=== PATIENT | female | born 1995 | race Caucasian/White ===

== ENCOUNTER 2016-11-25 05:33 | Outpatient (CLI) | payer MEDICAID ==
[~2016-11-25] VITALS: Ht 180.3 cm; Wt 141.1 kg
[~2016-11-25 05:33] MED LIST: DCS100C PO; FLUO40CA PO; HYDR-3720 PO; Ibuprofen PO
== END 2016-11-25 12:05 ==
LOC: PREOP 05:33
PROVIDERS: ATTEND Surgery
DX: Z01.818 Encounter for other preprocedural examination (principal); R22.2 Localized swelling, mass and lump, trunk

== ENCOUNTER 2016-11-30 07:02 | Day surgery (SDC) | payer MEDICAID ==
[~2016-11-30] VITALS: Ht 180.3 cm; Wt 141.1 kg
[2016-11-30] MEDS ORDERED: ceFAZolin 2 GM/50 ML NS 50 ML IV ONE (07:07)
[2016-11-30] MEDS ORDERED: ceFAZolin 2 GM/NS 50 ML IV ONE (07:15)
[2016-11-30] MEDS ORDERED: LIDOCAINE/EPI 1%-1:100,000 (XYLOCAINE) 20ML ONE (07:19)
[2016-11-30 07:20] VITALS: BP 107/62
[2016-11-30] MEDS ORDERED: LACTATED RINGERS 1,000 ML IV PRN (07:30)
--- NOTE | 2016-11-30 08:31 | Progress Note-Pre Operative ---
Pre-Operative Progress Note H&P Reviewed The H&P was reviewed, patient examined and no changes noted. Date H&P Reviewed: Nov 30, 2016 Time H&P Reviewed: 08:31 Pre-Operative Diagnosis: suprapubic mass, probable endometriosis ADRIA TIRADO DO Nov 30, 2016 08:31
[2016-11-30] MEDS ORDERED: MIDAZOLAM 2 MG/2 ML (VERSED) VIAL ONE (09:11)
[2016-11-30] MEDS ORDERED: LACTATED RINGERS 1,000 ML IV ONE (09:11)
[2016-11-30] MEDS ORDERED: ONDANSETRON 4 MG/2 ML (SDV) Z0FRAN ONE (09:11)
[2016-11-30] MEDS ORDERED: proPOfol 200 MG/20 ML (DIPRIVAN) VIAL IV ONE (09:11)
[2016-11-30] MEDS ORDERED: LIDOCAINE PF 2% 10 ML (XYLOCAINE) AMP ONE (09:11)
[2016-11-30] MEDS ORDERED: fentaNYL INJECTION 100 MCG/2 ML AMP ONE (09:12)
[2016-11-30] MEDS ORDERED: SEVOFLURANE (ULTANE) 15 ML INHAL SOLN ONE ×2 (09:16→09:45)
[2016-11-30] MEDS ORDERED: HYDR-3820 PO (09:45)
--- NOTE | 2016-11-30 09:47 | Discharge Inst-Surgical ---
Discharge Inst-Surgical Depart Medication/Instructions New, Converted or Re-Newed RX: RX Given to Pt/Family Patient Instructions Follow up Appt: Make appointment for 1 week. [phone] Instructions: No strenuous activity. May shower in 24 hours, no tub bath or soaking. Use incentive spirometer at home as directed. No Smoking Skin/Wound Care: May remove bandages. Glue will fall off on its own. Symptoms to Report: Appetite Changes, Extremity Discoloration, Numbness/Tingling, Swelling Increased , Bleeding Excessive, Eyesight Changes, Pain Increased, Urine Color Change, Constipation(Persistent), Fever over 101 degree F, Pain/Pressure in chest, Urinating Difficulty, Cough Up/Vomit Blood, Heart Beat Irreg/Pounding, Pain/ Pressure in jaw, Vaginal Bleeding Increase, Cramps in feet or legs, Lightheadedness, Pain/Pressure in shoulder, Diarrhea(Persistent), Memory Changes Suddenly, Questions/Concerns, Weight gain consecutive days, Dizziness/ Fainting, Nausea/Vomiting, Shortness of Breath, Weight gain over 2 pounds If questions or concerns contact your physician Or seek help at emergency department. Activity Activity as Tolerated: Yes Driving Instructions: No Driving/Refer to Dr. Guerrero Driving When on Pain Meds: Yes If Any Problems/Questions/Issu: Contact Your Physician, Go to Emergency Room Skin/Wound Care Infection Signs and Symptoms: Increased Redness, Foul Odor of Wound, Increased Drainage, Skin Itchy or Has a Rash, Increased Swelling, Temperature Above 101 F Bathing Instructions: Shower Stitches/Candy/Dermabond Dis: Dermabond Ice Pack: Ice On and Off Site ADRIA TRIADO DO Nov 30, 2016 09:47
--- NOTE | 2016-11-30 09:49 | Progress Note-Post Operative ---
Post-Operative Progess Note Finance Attorney none Pre-Operative Diagnosis suprapubic mass, probable endometriosis Post-Operative Diagnosis same pending path Post-Op Procedure Note Date of Procedure: Nov 30, 2016 Name of Procedure: Excision of suprapubic mass, 4.3 cm incision down to fascia Anesthesia Type GET Estimated blood loss (mL): scant Specimen(s) collected suprapubic mass ADRIA TIRADO DO Nov 30, 2016 09:48
[2016-11-30 10:30] VITALS: BP 117/61
--- NOTE | 2016-11-30 10:30 | OPERATIVE REPORT ---
PROCEDURE PHYSICIAN: ADRIA BYRNE DATE OF PROCEDURE: 11/30/2016 PREOPERATIVE DIAGNOSIS: Suprapubic mass. POSTOPERATIVE DIAGNOSIS: 1. Suprapubic mass. 2. Pending pathology. PROCEDURE: Excision of suprapubic mass with 4.3 cm incision was down to and on the fascia. SURGEON: Dr. Byrne WASH DRILLER HELPER: None. ANESTHESIA: General endotracheal tube with approximately 20 mL of local injected by myself. SPECIMENS: Suprapubic mass. BLOOD LOSS: Scant. FLUIDS: Per anesthesia. POSTOPERATIVE: Stable. INDICATION FOR THE PROCEDURE: The patient is a 22-year-old female who has a mass suprapubically right over her scar that has causing pain, especially more during her period. Most likely this is an endometrial implant. FINDINGS: The patient had a suprapubic mass that was removed and sent to pathology. PROCEDURE NOTE: After informed consent was obtained the patient brought to the operating room, placed in supine position. She was sterilely prepped and draped in the normal fashion. Local lidocaine was used to infiltrate skin directly above the mass in the previous scar. Incision was then made with a number 15 blade, carried down through skin into subcutaneous tissue. A 4.3 cm incision was made and then carried down through the skin into the subcutaneous tissue with Bovie electrocautery down to the mass. Grasped with a [place] and then dissected around it. Went on to the fascia of the rectus muscles and able to carefully shave this off the fascia with the Bovie electrocautery and get around the mass, removed this en bloc and then passed off the table. Copiously irrigated with normal saline, suctioned this out. Hemostasis was obtained with Bovie electrocautery. Elected to close the incision with 4-0 undyed Monocryl, 4 interrupted subcuticular stitches. The area was clean and dried and Dermabond placed. The patient then transferred to recovery room in stable condition. Sponge, needle counts were correct at the end of the case. Job ID: [id number] Dictated Date: 11/30/2016 09:51:23 Occupational Therapy Technician Date: 11/30/2016 10:21:48 / rissa
[2016-11-30] MEDS ORDERED: HYDROcodone/APAP 10 MG/325 MG (LORTAB) TAB PO PRN (10:35)
[2016-11-30 11:00] VITALS: BP 105/71
--- OUTSIDE RECORDS SUMMARY | 2016-12-15 16:47 | XMS REPORT | Continuity of Care Document ---
Author Author [facility] Organization [facility] Address Unknown Phone Unavailable Allergies Active Description Code Type Severity Reaction Onset Reported/Identified Relationship to Patient Clinical Status Yes No Known Drug Allergies [id number] Drug Allergy Unknown N/ A 11/25/2016 Medications Problems Date Dx Coded Attending Type Code Diagnosis Diagnosed By 03/19/2014 CHARLENE CROWELL, DAMION Covarrubias Ot 642.41 MILD/NOS PREECLAMP-DELIV 03/19/2014 DAMION CHANG MD Ot 653.41 FETOPELV DISPROPOR-DELIV 03/19/2014 DAMION CHANG MD Ot 656.81 FET/PLAC PROB NEC-DELIV 03/19/2014 DAMION CHANG MD Ot 657.01 POLYHYDRAMNIOS,DEL W OR W/O MENTN ANTEPA 03/19/2014 DAMION CHANG MD Ot 660.11 BONY PELV OBSTRUCT-DELIV 03/19/2014 DAMION CHANG MD Ot 661.21 UTERINE INERT NEC-DELIV 03/19/2014 DAMION CHANG MD Ot V06.1 [id number], COMBINED [ 03/19/2014 CHARLENE CROWELL, DAMION Covarrubias Ot V27.0 DELIVER-SINGLE LIVEBORN 11/26/2016 ADRIA TIRADO DO Ot R22.2 LOCALIZED SWELLING, MASS AND LUMP, TRUNK 11/26/2016 ADRIA TIRADO DO Ot Z01.818 ENCOUNTER FOR OTHER PREPROCEDURAL EXAMIN 11/30/2016 ADRIA TIRADO DO Ot N80.8 OTHER ENDOMETRIOSIS Procedures Code Description Performed By Performed On 73.4 MEDICAL INDUCTION LABOR 03/16/2014 74.1 LOW CERVICAL 03/16/2014 Results Test Result Range Urine beta human chorionic gonadotropin (hCG) measurement - 11/30/16 07:12 Urine beta human chorionic gonadotropin (hCG) measurement NEGATIVE NEGATIVE Methicillin resistant Staphylococcus aureus (MRSA) screening culture - 07:15 Methicillin resistant Staphylococcus aureus (MRSA) screening culture NEG NRG Encounters ACCT No. Visit Date/Time Discharge Status Pt. Type Provider Facility Loc./Unit Complaint [id number] 11/30/2016 07:02:00 2016 11:25:00 DIS Outpatient ADRIA TIRADO DO [facility] SDC SUPRA PUBIC MASS [id number] 11/25/2016 05:33:00 2016 12:05:00 DIS Outpatient ADRIA TIRADO DO [facility] PREOP SUPRA PUBIC MASS [id number] 03/16/2014 06:42:00 2013 12:55:00 DIS Inpatient DAMION CHANG MD [facility] LDRP INDUCTION [id number] 03/12/2014 15:40:00 2013 23:59:59 CLS Outpatient
== END 2016-11-30 11:25 | disposition home or self-care (01) ==
LOC: DELPENDDIS → SDC 07:02
PROVIDERS: ATTEND Surgery
DX: N80.8 Other endometriosis (principal)
CPT/HCPCS: 84703; 87081; 88305

== ENCOUNTER 2020-09-02 05:29 | Outpatient (RCR) | payer MEDICAID ==
[~2020-09-02] VITALS: Ht 180.3 cm; Wt 151.4 kg
[~2020-09-02 05:29] MED LIST changes: +ACHYD1T PO; +ESCI10TA PO; +PNV1TABL9 PO
[2020-09-05] MEDS ORDERED: OXYC1TAB12 PO (10:29)
[2020-09-05] MEDS ORDERED: IBUP-1780 PO (10:29)
[2020-09-05] MEDS ORDERED: DCS100C PO (10:29)
== END 2020-09-02 10:21 | disposition home or self-care (01) ==
LOC: PREOP 05:29
PROVIDERS: ATTEND Obstetrics & Gynecology
DX: Z01.812 Encounter for preprocedural laboratory examination (principal); O34.219 Maternal care for unspecified type scar from previous cesarean delivery; Z3A.00 Weeks of gestation of pregnancy not specified; Z20.828 Contact with and (suspected) exposure to other viral communicable diseases
CPT/HCPCS: 87635

== ENCOUNTER 2020-09-04 06:00 | Inpatient (IN) | payer MEDICAID ==
[2020-09-04] VITALS (11 sets, daily range): BP systolic 97–124; BP diastolic 56–79
[~2020-09-04] VITALS: Ht 180.3 cm; Wt 153.4 kg
[~2020-09-04 06:00] MED LIST changes: +CITRIC ACID/SOB CIT (BICITRA) 30 ML UDC ONE; +FAMOTIDINE 20MG/2ML IV (PEPCID) ONE; +METOCLOPRAMIDE INJ 10 MG/2 ML (REGLAN) ONE; +ceFAZolin 2 GM IV Premixed 50 ML ONE; +metroNIDAZOLE 500MG/100ML IVPB 100 ML ONE
--- NOTE | 2020-09-04 06:00 | NUR ---
CJ BECKHAM presented to unit from ED, accompanied by Mother, with c/o PREVIOUS CS. CJ BECKHAM weighed, gowned, voided, and to bed. EFHM and TOCO applied, VS taken. CJ BECKHAM oriented to bed controls, call light, TV, heat, and A/C controls.
[2020-09-04] MEDS ORDERED: metroNIDAZOLE 500MG/100ML IVPB 100 ML IV ONE (06:45)
[2020-09-04] MEDS ORDERED: ceFAZolin INJECTION 2,000 MG in WATER (STERILE) FOR INJECTION 10 ML IV ONE (06:45)
[2020-09-04] MEDS ORDERED: D5 LR IV SOLUTION 1,000 ML IV SCH ×2 (06:45→15:30)
[2020-09-04 06:53] LABS: BASOPHILS % (AUTO) 0 % (0-10); EOSINOPHILS # (AUTO) 0.2 10^3/uL (0.0-0.3); EOSINOPHILS % (AUTO) 1 % (0-10); HEMATOCRIT 35 % (35-52); HEMOGLOBIN 11.3 g/dL (11.5-16.0); LYMPHOCYTES % (AUTO) 27 % (12-44); MEAN CORPUSCULAR HEMOGLOBIN 27 pg (25-34); MEAN CORPUSCULAR HGB CONC 32 g/dL (32-36); MEAN CORPUSCULAR VOLUME 82 fL (80-99); MEAN PLATELET VOLUME 10.3 fL (9.0-12.2); MONOCYTES # (AUTO) 0.6 10^3/uL (0.0-1.0); MONOCYTES % (AUTO) 6 % (0-12); NEUTROPHILS % (AUTO) 65 % (42-75); PLATELET COUNT 242 10^3/uL (130-400); WHITE BLOOD COUNT 10.9 10^3/uL (4.3-11.0)
[2020-09-04] MEDS ORDERED: METOCLOPRAMIDE INJ 10 MG/2 ML (REGLAN) IV ONE (07:00)
[2020-09-04] MEDS ORDERED: CITRIC ACID/SOB CIT (BICITRA) 30 ML UDC PO ONE (07:00)
[2020-09-04] MEDS ORDERED: FAMOTIDINE 20MG/2ML IV (PEPCID) IV ONE (07:00)
[2020-09-04] MEDS ORDERED: CATHETER FLUSH 10 ML SYR IV PRN ×2 (07:00)
[2020-09-04] MEDS ORDERED: fentaNYL INJECTION 100 MCG/2 ML AMP ONE (07:02)
[2020-09-04] MEDS ORDERED: OXYTOCIN PRE-MIX DRIP 1,000 ML IV ONE (07:02)
[2020-09-04] MEDS ORDERED: ceFAZolin 2 GM IV Premixed 50 ML IV ONE ×2 (07:02→07:30)
[2020-09-04] MEDS: LACTATED RINGERS 1,000 ML IV PRN ×2 (07:03→07:30)
--- NOTE | 2020-09-04 07:16 | History & Physical ---
History and Physical Date Seen by Provider: Sep 04, 2020 Time Seen by Provider: 07:13 This patient is a 25-year-old 2 para 1 1 white female with a history of PIH. She is admitted now for repeat delivery. Patient's p regnancy has been complicated by episodic high blood pressure. Her previous was complicated by PIH and preeclampsia. Patient denies rupture membranes or bleeding. Allergies are none Medications are vitamins Medical social and surgical history is all per the antepartum record HEENT exam is normal Neck is supple with no lymphadenopathy no thyromegaly Abdomen is gravid soft nontender nondistended Extremities show no clubbing or cyanosis. There is no Homans' sign. Pelvic exam is deferred Laboratory Tests 09/04/20 06:32 Assessment and plan 38 6/7 weeks gestation with PIH and previous admitted now for repeat delivery 38 6/7 weeks gestation with PIH and previous Allergies and Home Medications Allergies Coded Allergies: No Known Drug Allergies (Unverified , 11/25/16) Home Medications Escitalopram Oxalate 10 Mg Tablet, 10 MG PO DAILY, (Reported) Pnv Cmb#21/Iron/Folic Acid 1 Each Tablet, 1 EACH PO DAILY, (Reported) Patient Home Medication List Home Medication List Reviewed: Yes DAMION CHANG MD Sep 04, 2020 07:16
[2020-09-04 07:22] LABS: BILIRUBIN,URINE NEGATIVE (NEGATIVE); CLARITY,URINE CLOUDY; COLOR,URINE YELLOW; GLUCOSE, URINE (UA) NEGATIVE (NEGATIVE); KETONES,URINE NEGATIVE (NEGATIVE); LEUKOCYTE ESTERASE ,URINE TRACE (NEGATIVE); NITRITE,URINE NEGATIVE (NEGATIVE); PROTEIN,URINE NEGATIVE (NEGATIVE)
[2020-09-04] MEDS ORDERED: PHENYLEPHRINE 100 MCG/ML 10 ML (ANESTHESIA) SYR ONE (07:27)
[2020-09-04] MEDS ORDERED: KETOROLAC 30 MG/ML VIAL ONE (07:28)
[2020-09-04] MEDS ORDERED: ONDANSETRON 4 MG/2 ML (SDV) Z0FRAN ONE (07:28)
[2020-09-04] MEDS ORDERED: OXYTOCIN PRE-MIX DRIP 500 ML IV ONE (07:28)
[2020-09-04 07:38] LABS: BACTERIA,URINE LARGE /HPF
[2020-09-04] MEDS ORDERED: BUPIVACAINE 0.5% 30 ML (SENSORCAINE) VIAL ONE (08:13)
[2020-09-04] MEDS ORDERED: MEASLES,MUMPS,RUBELLA 1 EA INJ SC ONE (08:15)
[2020-09-04] MEDS ORDERED: TETANUS,DIPTH,PERTUSS P/F (BOOSTRIX) 0.5 ML VIAL IM ONE (08:15)
[2020-09-04] MEDS ORDERED: ONDANSETRON 4 MG/2 ML (SDV) Z0FRAN IVP PRN (08:15)
[2020-09-04] MEDS: OXYTOCIN PRE-MIX DRIP 500 ML IV SCH ×2 (08:26→12:38)
[2020-09-04] MEDS ORDERED: DOCUSATE SODIUM 100 MG (COLACE) CAP PO SCH (09:00)
[2020-09-04] MEDS: KETOROLAC 30 MG/ML VIAL IVP SCH ×4 (09:03→21:03)
--- NOTE | 2020-09-04 09:29 | OPERATIVE REPORT ---
DATE OF SERVICE: 09/04/2020 PREOPERATIVE DIAGNOSES: A 38 and 6/7 weeks' gestation with PIH and previous . POSTOPERATIVE DIAGNOSES. A 38 and 6/7 weeks' gestation with PIH and previous . OPERATIVE PROCEDURE: Repeat low transverse delivery of live male with Apgars of 9 and 9 at 1 and 5 minutes respectively, weight 7 pounds 6 ounces. Cord blood pH of 7.30 and a time of 0736. OPERATIVE DESCRIPTION: With the patient in the supine position under satisfactory spinal analgesia, she was prepped and draped in the usual fashion for abdominal surgery. Domínguez catheter was placed in the urinary bladder. Repeat Pfannenstiel incision made through the skin with scalpel at the site of the patient's previous Pfannenstiel incisional scar. The abdomen was entered in the usual manner. Bladder retractor placed in position; clean scalpel used to make a 4 cm hysterotomy incision transversely across the lower uterine segment. The final portion of entry was blunt. The incision was extended bluntly as well. A small amount of amniotic fluid was released on hysterotomy. A vigorous viable male was delivered via the uterine incision in the usual manner. Infant was bulb suctioned on delivery of the head and again on completion of delivery. The umbilical cord was doubly clamped and cut and the passed to the pediatric nurse in attendance for delivery. Cord bloods were obtained. The placenta delivered spontaneously Cortes. It was normal with a 3-vessel cord. The uterus was exteriorized, the interior wiped clean with a wet laparotomy sponge. Uterine incision closed with running locked suture of 2-0 Vicryl. Hemostasis was complete. The uterus was returned to the abdominal cavity. All blood clot and debris removed from the abdominal cavity. Sponge and needle counts correct and hemostasis now assured. The anterior parietal peritoneum was closed with running suture of 2-0 Vicryl. Rectus muscles were closed with that suture as well. The rectus fascia was closed with 2-0 Vicryl, subcutaneous tissue was closed with 2-0 Vicryl and the skin was stapled. Sponge and needle counts were correct on completion of the procedure. Estimated blood loss was around 500 mL. The patient tolerated the procedure well and remained in the operating room as I left but she was to be transferred to the recovery room shortly. The infant remained with the mom. Job ID: [id number] DocumentID: [id number] Dictated Date: 09/04/2020 07:55:16 Mobile Sales Technician Date: 09/04/2020 09:28:02 Dictated By: DAMION CHANG MD MTDD
--- NOTE | 2020-09-04 09:30 | NUR ---
Report received from GRZEGORZ Prado. care assumed of pt.
[2020-09-04] MEDS: DOCUSATE SODIUM 100 MG (COLACE) CAP PO SCH ×2 (09:39→20:58)
[2020-09-04 10:14] LABS: AMPHETAMINE SCREEN, URINE NEGATIVE (NEGATIVE); BARBITURATE SCREEN URINE NEGATIVE (NEGATIVE); BENZODIAZEPINES SCREEN URINE NEGATIVE (NEGATIVE); CANNABINOID SCREEN, URINE NEGATIVE (NEGATIVE); COCAINE SCREEN URINE NEGATIVE (NEGATIVE); METHADONE STAT NEGATIVE (NEGATIVE); METHAMPHETAMINE SCREEN URINE S NEGATIVE (NEGATIVE); OPIATE SCREEN URINE NEGATIVE (NEGATIVE); OXYCODONE STAT NEGATIVE (NEGATIVE); PROPOXYPHENE STAT NEGATIVE (NEGATIVE); TRICYCLIC ANTIDEPRESSANTS SCRE NEGATIVE (NEGATIVE)
--- NOTE | 2020-09-04 11:00 | NUR ---
Percocet 2 tabs given per pt's request for incisional pain. see eMar for further.
[2020-09-04] MEDS: oxyCODONE/APAP 10/325MG (PERCOCET 10) TABLET PO PRN ×3 (11:09→23:09)
--- NOTE | 2020-09-04 13:30 | NUR ---
assisted up to BR. voided 200cc urine without difficulty. nilo-care instructions given. v-pad and panties in place.
--- NOTE | 2020-09-04 17:01 | NUR ---
CM/SS visited with patient for social service consult. Home: The patient lives at home with her 6-year-old, mother, and father. The father of the baby is not currently involved due to a paternity test being done. Supplies: Patient reports that she has everything she needs at home currently except for the Formula. She states that her mother will be able to assist with that until [facility] appointment. She has a car seat, pack-n-play, clothes, and swing. Services: The patient is set up with [facility] and has a follow up appointment on September 17. The patient is on Medicaid. She is also connected with [facility] with [employer]. This sw will provide the patient with a resource list for [facility] in the a.m. Substances: The patient denies current drug and alcohol use. 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 The patient goes to meetings. Mental health: The patient see's Anay at [facility] in [place] once a month for mental health and substance use counseling. The patient reports that she is diagnosed with Anxiety and Depression. She reports that she was misdiagnosed with Bipolar and the medication was making her have more sever symptoms. The patient states she is now off of that medication and her symptoms are managed by Lexapro. Physician follow up: The patient reports that she would like to take baby to [facility]. The patient does not have a PCP. JOSUE/ELIANA discussed [facility] in [place]. No further needs at this time. Addendum: 09/05/20 at 1436 by MARNI MYERS 09/05 update: This sw provided patient with the [facility] resource list. The patient was talking with financial services at the time of visit. No further needs. Notified nurse of visit.
--- NOTE | 2020-09-04 18:30 | NUR ---
infant remains out with mother. appropriate bonding noted. no c/o's voiced.
--- NOTE | 2020-09-04 19:19 | NUR ---
report given to GRZEGORZ Medley.
--- NOTE | 2020-09-04 20:00 | NUR ---
RN to room for assessment. Pt reports bleeding has decreased and reports no clots. IV discontinued at this time due to pt accidentally bending catheter. Pt denies any needs or concerns at this time.
[2020-09-04] MEDS ORDERED: IBUPROFEN 800 MG (MOTRIN) TAB PO ONE (20:52)
[2020-09-05 01:05] VITALS: BP 128/58
[2020-09-05] MEDS ORDERED: IBUPROFEN 800 MG (MOTRIN) TAB PO ONE (02:47)
[2020-09-05 04:39] VITALS: BP 131/68
[2020-09-05] MEDS: oxyCODONE/APAP 10/325MG (PERCOCET 10) TABLET PO PRN ×3 (04:40→19:45)
[2020-09-05 07:45] VITALS: BP 120/65
[2020-09-05] MEDS: IBUPROFEN 800 MG (MOTRIN) TAB PO SCH ×3 (08:54→19:44)
[2020-09-05] MEDS: DOCUSATE SODIUM 100 MG (COLACE) CAP PO SCH ×2 (08:55→19:44)
--- NOTE | 2020-09-05 09:30 | NUR ---
Dr Valiente here to see pt.
--- NOTE | 2020-09-05 10:28 | Progress Note ---
Standard Progress Note Progress Notes/Assess & Plan Date Seen by a Provider: Sep 05, 2020 Time Seen by a Provider: 10:27 Progress/Assessment & Plan This patient is without complaint. She is ambulating, voiding, tolerating oral intake well and has good pain control. Vital Signs Date Time Temp Pulse Resp B/P (MAP) Pulse Ox O2 Delivery O2 Flow Rate FiO2 09/05/20 07:45 36.4 78 16 120/65 (83) 98 Room Air 09/05/20 04:39 36.4 71 16 131/68 (89) 98 Room Air 09/05/20 01:05 36.2 71 16 128/58 (81) 97 Room Air 09/04/20 20:57 36.2 78 18 124/79 (94) 100 Room Air 09/04/20 16:40 36.5 79 18 124/70 (88) 98 Room Air 09/04/20 12:39 36.6 77 18 106/56 (73) 97 Room Air I & O 09/05/20 07:00 Intake Total 4950 ml Output Total 1550 ml Balance 3400 ml Vital signs are stable. Patient is afebrile. The abdomen is benign. The surgical incision is clean dry and intact. Extremities show no clubbing cyanosis. There is no Homans' sign. Assessment and plan postoperative day #1 status post repeat delivery at 38 weeks gestation. Patient is doing well and will have routine convalescent care DAMION CHANG MD Sep 05, 2020 10:28
[2020-09-05] MEDS ORDERED: IBUP-1780 PO (10:29)
[2020-09-05] MEDS ORDERED: OXYC1TAB12 PO (10:29)
[2020-09-05] MEDS ORDERED: DCS100C PO (10:29)
--- NOTE | 2020-09-05 10:30 | Discharge Inst-Surgical ---
Discharge Inst-Surgical Depart Medication/Instructions New, Converted or Re-Newed RX: RX on Chart Consults/Follow Up Patient Instructions: As directed Orders & Referrals Follow Up Appt: RTC On Sunday, September 13, 2020 at 9:30 AM for incision check. Call to make follow up appt. for patient in 4 weeks. Wound Care: Remove zulema, apply benzoin and steri strips. Activity Per routine post instructions. Please call in RX to patient pharmacy. Diet as tolerated Patient may shower or tub bathe as desired. Continue home meds Activity Activity as Tolerated: No Diet Discharge Diet: No Restrictions DAMION CHANG MD Sep 05, 2020 10:30
--- NOTE | 2020-09-05 13:00 | NUR ---
Reported positive RPR to Dr Valiente. Conformity test Non-Treponemal Antiboby titre 1.4 trending down from 1.8 in February of this year. no new orders at this time
[2020-09-05 14:00] VITALS: BP 114/65
--- NOTE | 2020-09-05 14:00 | NUR ---
Called RX to patient's pharmacy ([address] [place] [address] pharmacy in [facility]) and mother of patient took Percocet Rx to pt's pharmacy. Pt instructed on meds and voiced understanding.
--- NOTE | 2020-09-05 15:26 | Anesthesia-Regional Post-Op ---
Regional Patient Condition Mental Status: Alert, Oriented x3 Circulation: Same as Pre-Op Headache: Absent Sensation: Full Recovery Motor Block: Absent Post Op Complications Complications None Follow Up Care/Instructions Patient Instructions None needed. Anesthesia/Patient Condition Patient is doing well, no complaints, stable vital signs, no apparent adverse anesthesia problems. No complications reported per nursing. KIANNA SOLITARIO CRNA Sep 05, 2020 15:26
[2020-09-05 19:45] VITALS: BP 120/65
[2020-09-06 03:00] VITALS: BP 121/62
[2020-09-06] MEDS: IBUPROFEN 800 MG (MOTRIN) TAB PO SCH ×2 (03:00→08:38)
[2020-09-06] MEDS: oxyCODONE/APAP 10/325MG (PERCOCET 10) TABLET PO PRN ×2 (03:01→10:01)
[2020-09-06] MEDS: DOCUSATE SODIUM 100 MG (COLACE) CAP PO SCH (08:38)
[2020-09-06 08:40] VITALS: BP 127/72
--- NOTE | 2020-09-06 08:40 | NUR ---
initial shift assessment completed, see interventions for further.
--- NOTE | 2020-09-06 10:30 | NUR ---
here, dismissal orders received.
--- NOTE | 2020-09-06 10:33 | Progress Note ---
Standard Progress Note Progress Notes/Assess & Plan Date Seen by a Provider: Sep 06, 2020 Time Seen by a Provider: 10:31 Progress/Assessment & Plan This patient is without complaint. She is ambulating, voiding, tolerating oral intake well and has good pain control. Vital Signs Date Time Temp Pulse Resp B/P (MAP) Pulse Ox O2 Delivery O2 Flow Rate FiO2 09/05/20 07:45 36.4 78 16 120/65 (83) 98 Room Air 09/05/20 04:39 36.4 71 16 131/68 (89) 98 Room Air 09/05/20 01:05 36.2 71 16 128/58 (81) 97 Room Air 09/04/20 20:57 36.2 78 18 124/79 (94) 100 Room Air 09/04/20 16:40 36.5 79 18 124/70 (88) 98 Room Air 09/04/20 12:39 36.6 77 18 106/56 (73) 97 Room Air I & O 09/05/20 07:00 Intake Total 4950 ml Output Total 1550 ml Balance 3400 ml Vital signs are stable. Patient is afebrile. The abdomen is benign. The surgical incision is clean dry and intact. Extremities show no clubbing cyanosis. There is no Homans' sign. Assessment and plan postoperative day #1 status post repeat delivery at 38 weeks gestation. Patient is doing well and will have routine convalescent care September 06, 2020 This patient is without complaint. She is ambulating, voiding, tolerating oral intake well has good pain control. Patient is requesting discharge home. Vital Signs Date Time Temp Pulse Resp B/P (MAP) Pulse Ox O2 Delivery O2 Flow Rate FiO2 09/06/20 03:00 36.1 81 18 121/62 (81) 100 Room Air 09/05/20 19:45 36.6 82 18 120/65 (83) 100 Room Air 09/05/20 17:33 36.4 72 18 99 Room Air 09/05/20 14:00 36.7 85 16 114/65 (81) 99 Room Air I & O 09/06/20 07:00 Intake Total 2300 ml Balance 2300 ml Vital signs are stable. Patient is afebrile. The abdomen is benign the fundus is firm below the umbilicus and nontender. The surgical incision is clean dry and intact. Extremities show no clubbing or cyanosis. There is no Homans' sign. Assessment and plan postoperative day #2 status post repeat delivery at 38 weeks gestation. Patient is doing well and will be discharged home. If her baby is not released she will be allowed to room iin until baby is discharged Final Diagnosis 38-week repeat delivery DAMION CHANG MD Sep 06, 2020 10:33
--- NOTE | 2020-09-06 11:46 | NUR ---
was called to verify no further treatment of +RPR prior to dismissal - no new orders received @ time.
--- NOTE | 2020-09-06 12:40 | NUR ---
zulema D/c's per Dr's orders. Benzoine and steri-strips applied. incision edges well approximated, no sx's of infection noted.
--- NOTE | 2020-09-06 12:43 | NUR ---
dismissal instructions given, verbalizes understanding. reviewed follow up appointments and Rx's. signature page signed, placed on chart.
--- NOTE | 2020-09-06 15:00 | NUR ---
pt ambulated to private vehicle with this RN and @ side. pt stable with no sx's of distress noted. secured in rear facing car seat.
[2020-09-09] MEDS ORDERED: IBUPROFEN 800 MG (MOTRIN) TAB PO SCH (09:00)
== END 2020-09-06 15:00 | disposition home or self-care (01) | DRG 788 ==
LOC: LDRP 06:00
PROVIDERS: ADMIT Obstetrics & Gynecology; ATTEND Obstetrics & Gynecology
PROC: 10D00Z1 Extraction of Products of Conception, Low, Open Approach (ICD-10-PCS; principal; 2020-09-04 07:19)
DX: O34.211 Maternal care for low transverse scar from previous cesarean delivery (principal); Z3A.38 38 weeks gestation of pregnancy; Z37.0 Single live birth; O13.4 Gestational [pregnancy-induced] hypertension without significant proteinuria, complicating childbirth
CPT/HCPCS: 36415; 80306; 81000; 85025; 86592; 86780; 86850; 86900; 86901; 87088

== ENCOUNTER 2020-10-06 15:21 | Emergency (ER) | payer MEDICAID ==
[~2020-10-06] VITALS: Ht 180.3 cm; Wt 146.8 kg
[~2020-10-06 15:21] MED LIST changes: -CITRIC ACID/SOB CIT (BICITRA) 30 ML UDC ONE; -FAMOTIDINE 20MG/2ML IV (PEPCID) ONE; +IBUP-1780 PO; -METOCLOPRAMIDE INJ 10 MG/2 ML (REGLAN) ONE; +OXYC1TAB12 PO; -ceFAZolin 2 GM IV Premixed 50 ML ONE; -metroNIDAZOLE 500MG/100ML IVPB 100 ML ONE
[2020-10-06 15:59] LABS: BILIRUBIN,URINE NEGATIVE (NEGATIVE); CLARITY,URINE TURBID; COLOR,URINE ORANGE; GLUCOSE, URINE (UA) NEGATIVE (NEGATIVE); KETONES,URINE NEGATIVE (NEGATIVE); LEUKOCYTE ESTERASE ,URINE TRACE (NEGATIVE); NITRITE,URINE NEGATIVE (NEGATIVE); PROTEIN,URINE TRACE (NEGATIVE)
--- NOTE | 2020-10-06 16:02 | ED GU-Female ---
General Chief Complaint: Female Reproductive Stated Complaint: VAGINAL BLEEDING C SECTION ON 09/04 Nursing Triage Note: pt states she had on 09/04/20, states she started control and is on her period but she has excessive bleeding, needing to change pad every 30 mintues to an hour and is bleeding through her clothes. Nursing Sepsis Screen: No Definite Risk Source: patient Exam Limitations: no limitations History of Present Illness Date Seen by Provider: Oct 06, 2020 Time Seen by Provider: 15:34 Initial Comments Patient presents ER by private conveyance from home with chief complaint she is been having intermittent spotting and bleeding for the past month since her C- section delivery 09/04/[address] Valiente. She had about 5 days of no bleeding and then today she started having heavy bleeding going through a pad about every 30 minutes and soiling her clothes. She started control 3 weeks ago and today she was also start the sugar pills. Normally her periods are regular and not heavy. She is not having significant pain or cramping. No nausea fever chills dysuria or diarrhea. G2, P2. 32 days . She does take Lexapro as well. She did attempt to put a tampon and today when her bleeding got heavy however she has not had any intercourse or other things in the vagina since before delivery. Allergies and Home Medications Allergies Coded Allergies: No Known Drug Allergies (Unverified , 11/25/16) Home Medications Docusate Sodium 100 Mg Capsule, 100 MG PO BID Prescribed by: DAMION MARINA on 09/05/20 1029 Escitalopram Oxalate 10 Mg Tablet, 10 MG PO DAILY, (Reported) Ibuprofen 800 Mg Tablet, 800 MG PO Q6H Prescribed by: DAMION MARINA on 09/05/20 1029 Oxycodone HCl/Acetaminophen 1 Each Tablet, 1 TAB PO Q4HR PRN for pain Prescribed by: DAMION MARINA on 09/05/20 1029 Pnv Cmb#21/Iron/Folic Acid 1 Each Tablet, 1 EACH PO DAILY, (Reported) Patient Home Medication List Home Medication List Reviewed: Yes Review of Systems Review of Systems Constitutional: No chills, No diaphoresis, No fever EENTM: No ear discharge, No hearing loss Cardiovascular: No chest pain, No palpitations Gastrointestinal: No abdominal pain, No nausea, No vomiting Genitourinary: see HPI; denies burning, denies discharge, denies dysuria Musculoskeletal: No back pain, No joint pain Skin: No change in color, No pruritus, No rash All Other Systemes Reviewed Negative Unless Noted: Yes Past Ulvaoeo-Nbzgrs-Hpshoa Hx Patient Social History Alcohol Use: Denies Use Drug of Choice: Meth Smoking Status: Current Everyday Smoker Type Used: Cigarettes Former Smoker, Quit: Nov 25, 2012 Recent Infectious Disease Expo: No Recent Hopitalizations: No Immunizations Up To Date Tetanus Booster (TDap): Unknown Seasonal Allergies Seasonal Allergies: No Past Medical History Surgeries: Yes (endometriosis removed from c/s scar) Section, Tonsillectomy Respiratory: No Cardiac: No Neurological: No Reproductive Disorders: No Female Reproductive Disorders: Endometriosis Sexually Transmitted Disease: No HIV/AIDS: No Genitourinary: No Gastrointestinal: No Musculoskeletal: No Endocrine: No HEENT: No Loss of Vision: Denies Hearing Impairment: Denies Cancer: No Psychosocial: Yes Anxiety Integumentary: No Blood Disorders: No Adverse Reaction/Blood Tranf: No Family Medical History Cancer (grandmother & grandfather) Grandparents (Maternal Grandmother-Multiple Myeloma Maternal Grandfather- Unknown type) Uncle (Multiple Myeloma) Colon cancer Grandparents (Paternal Grandfather) Completed stroke Grandparents (Paternal Grandmother) Uncle Diabetes mellitus 19 MOTHER Grandparents (Maternal Grandfather) Family history: Cardiovascular disease (aunt- mitral valve) Family history: Hypertension (mother) 19 MOTHER Family history: Thyroid disorder (mother) 19 MOTHER (Hypothyroid) Physical Exam Vital Signs Vital Signs - First Documented 10/06/20 15:30 Temp 36.2 Pulse 69 Resp 18 B/P (MAP) 142/96 (111) Pulse Ox 99 O2 Delivery Room Air Capillary Refill : Less Than 3 Seconds Height, Weight, BMI Height: 5'11.00" Weight: 311lbs. 0.0oz. 141.048147mf; 45.00 BMI Method: General Appearance: WD/WN, no apparent distress HEENT: PERRL/EOMI, pharynx normal Neck: full range of motion, normal inspection Cardiovascular: normal peripheral pulses, regular rate, rhythm Respiratory: no respiratory distress, no accessory muscle use Gastrointestinal: non tender, soft Genital/Rectal: other (External vulvar exam unremarkable except for some bloody secretions. Vaginal vault with small clots the size of a quarter or less and sanguinous fluid approximately 30 cc. Cervix is nontender, parous, closed with mucus but no membranes or other POC seen. No lacerations, abrasions seen.) Extremities: non-tender, normal inspection, normal capillary refill Neurologic/Psychiatric: alert, normal mood/affect, oriented x 3 Skin: normal color, warm/dry Progress/Results/Core Measures Suspected Sepsis Recent Fever Within 48 Hours: No Infection Criteria Present: None New/Unexplained Altered Menta: No Sepsis Screen: No Definite Risk SIRS Temperature: Pulse: 69 Respiratory Rate: 18 Laboratory Tests 10/06/20 14:42: White Blood Count 8.1 Blood Pressure 142 /96 Mean: 111 Laboratory Tests 10/06/20 14:42: Platelet Count 260 Results/Orders Lab Results Laboratory Tests Test 10/06/20 14:42 10/06/20 15:50 Range/Units White Blood Count 8.1 4.3-11.0 10^3/uL Red Blood Count 4.59 3.80-5.11 10^6/uL Hemoglobin 11.8 11.5-16.0 g/dL Hematocrit 38 35-52 % Mean Corpuscular Volume 82 80-99 fL Mean Corpuscular Hemoglobin 26 25-34 pg Mean Corpuscular Hemoglobin Concent 31 L 32-36 g/dL Red Cell Distribution Width 13.2 10.0-14.5 % Platelet Count 260 130-400 10^3/uL Mean Platelet Volume 9.9 9.0-12.2 fL Immature Granulocyte % (Auto) 0 % Neutrophils (%) (Auto) 56 42-75 % Lymphocytes (%) (Auto) 36 12-44 % Monocytes (%) (Auto) 6 0-12 % Eosinophils (%) (Auto) 3 0-10 % Basophils (%) (Auto) 1 0-10 % Neutrophils # (Auto) 4.5 1.8-7.8 10^3/uL Lymphocytes # (Auto) 2.9 1.0-4.0 10^3/uL Monocytes # (Auto) 0.5 0.0-1.0 10^3/uL Eosinophils # (Auto) 0.2 0.0-0.3 10^3/uL Basophils # (Auto) 0.0 0.0-0.1 10^3/uL Immature Granulocyte # (Auto) 0.0 0.0-0.1 10^3/uL Urine Color ORANGE Urine Clarity TURBID Urine pH 6.0 5-9 Urine Specific [place] 1.025 H 1.016-1.022 Urine Protein TRACE H NEGATIVE Urine Glucose (UA) NEGATIVE NEGATIVE Urine Ketones NEGATIVE NEGATIVE Urine Nitrite NEGATIVE NEGATIVE Urine Bilirubin NEGATIVE NEGATIVE Urine Urobilinogen 0.2 < = 1.0 MG/DL Urine Leukocyte Esterase TRACE H NEGATIVE Urine RBC (Auto) 3+ H NEGATIVE Urine RBC TNTC H /HPF Urine WBC RARE /HPF Urine Squamous Epithelial Cells RARE /HPF Urine Crystals NONE /LPF Urine Bacteria TRACE /HPF Urine Casts NONE /LPF Urine Mucus NEGATIVE /LPF Urine Culture Indicated NO My Orders Orders - PADMINI PRASAD Ua Culture If Indicated (10/06/20 15:42) Urine Bedside (10/06/20 15:42) Cbc With Automated Diff (10/06/20 15:48) Vital Signs/I&O 10/06/20 15:30 Temp 36.2 Pulse 69 Resp 18 B/P (MAP) 142/96 (111) Pulse Ox 99 O2 Delivery Room Air Capillary Refill : Less Than 3 Seconds Blood Pressure Mean: 111 Progress Note : Time: 16:01 Progress Note Plan to do speculum exam to rule out any membranes or other POC and evaluate for lacerations or wounds. CBC to rule out significant anemia. A septic vital signs. Consults Consults : Consulting Physician: DAMION VALIENTE MD Consults Notes Discussed the case with Dr. Valiente, BODY ARTIST who is familiar with the patient. He recommends she continue the oral contraceptives. He would like to get an ultrasound. If she does not emergently qualify for it because of anemia today then we can get it done tomorrow and she can follow-up in the clinic. CBC is still pending. Departure Impression Primary Impression: Menorrhagia Qualified Codes: N92.0 - Excessive and frequent menstruation with regular cycle Additional Impression: Metrorrhagia Disposition: 01 HOME, SELF-CARE Condition: Stable Departure-Patient Inst. Decision time for Depature: 16:59 Referrals: DAMION VALIENTE MD (PCP/Family) Primary Care Physician Patient Instructions: Heavy Periods (DC) Add. Discharge Instructions: Nothing in the vagina until cleared by your trailer driver. Continue to use pads. Return to the ER if you are having shortness of air with exertion, chest pain or other worrisome symptoms. Tomorrow call and set up an ultrasound as soon as possible by calling the number on the top of the outpatient order form. Follow-up with Dr. Valiente in the clinic by calling for an appointment to review the ultrasound. Continue taking your oral contraceptives as prescribed. All discharge instructions reviewed with patient and/or family. Voiced understanding. Work/School Note: Work Release Form Date Seen in the Emergency Department: Oct 06, 2020 Return to Work: Oct 08, 2020 Restrictions: No Restrictions Copy Copies To 1: DAMION VALIENTE MD, TITUS J Oct 06, 2020 16:02
[2020-10-06 16:06] LABS: BACTERIA,URINE TRACE /HPF; RBC,URINE TNTC /HPF; SQUAMOUS EPITHELIAL CELL,UR RARE /HPF; WBC,URINE RARE /HPF
[2020-10-06 16:48] LABS: BASOPHILS % (AUTO) 1 % (0-10); EOSINOPHILS # (AUTO) 0.2 10^3/uL (0.0-0.3); EOSINOPHILS % (AUTO) 3 % (0-10); HEMATOCRIT 38 % (35-52); HEMOGLOBIN 11.8 g/dL (11.5-16.0); LYMPHOCYTES # (AUTO) 2.9 10^3/uL (1.0-4.0); LYMPHOCYTES % (AUTO) 36 % (12-44); MEAN CORPUSCULAR HEMOGLOBIN 26 pg (25-34); MEAN CORPUSCULAR HGB CONC 31 g/dL (32-36); MEAN CORPUSCULAR VOLUME 82 fL (80-99); MEAN PLATELET VOLUME 9.9 fL (9.0-12.2); MONOCYTES # (AUTO) 0.5 10^3/uL (0.0-1.0); MONOCYTES % (AUTO) 6 % (0-12); NEUTROPHILS # (AUTO) 4.5 10^3/uL (1.8-7.8); NEUTROPHILS % (AUTO) 56 % (42-75); PLATELET COUNT 260 10^3/uL (130-400); WHITE BLOOD COUNT 8.1 10^3/uL (4.3-11.0)
[2020-10-06 17:04] VITALS: BP 142/96
== END 2020-10-06 17:03 | disposition home or self-care (01) ==
LOC: EDUNIT# 15:21 → ER 15:24
DX: N92.0 Excessive and frequent menstruation with regular cycle (principal); N92.1 Excessive and frequent menstruation with irregular cycle; F41.9 Anxiety disorder, unspecified; F17.210 Nicotine dependence, cigarettes, uncomplicated; Z83.3 Family history of diabetes mellitus; Z80.0 Family history of malignant neoplasm of digestive organs; Z82.49 Family history of ischemic heart disease and other diseases of the circulatory system
CPT/HCPCS: 36415; 81000; 84703; 85025; 99282

== ENCOUNTER → 2020-10-07 | Outpatient (CLI) | payer MEDICAID ==
--- NOTE | 2020-10-07 12:59 | Diagnostic Imaging Report ---
PROCEDURE: Pelvic comp/transvaginal sonogram. TECHNIQUE: Complete transabdominal and transvaginal pelvic ultrasound was performed. In addition, limited pelvic Doppler was performed. INDICATION: 30 days with menorrhagia. FINDINGS: Uterus is anteverted measuring 10.9 x 6.0 x 7.3 cm. Endometrium is 10 mm in thickness. No abnormal vascularity to the endometrium is seen to suggest retained products of conception. Right ovary measures 3.4 x 2.2 x 2.1 cm. There is normal blood flow. The left ovary could not be visualized. No adnexal mass or free fluid is detected. IMPRESSION: Unremarkable transabdominal and transvaginal pelvic ultrasound with exception of a nonvisualized left ovary. There are no findings to suggest retained products of conception. Dictated by: Dictated on workstation # [id number]
== END ==
LOC: RAD 10:46
PROVIDERS: ATTEND Emergency Medicine
DX: O72.1 Other immediate postpartum hemorrhage (principal)
CPT/HCPCS: 76830; 76856